=== PATIENT | male | born 1960 | race Caucasian/White ===

== ENCOUNTER 2019-12-21 05:48 | Emergency (ER) | payer OTHER, MEDICAID ==
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
[2019-12-21] MEDS ORDERED: IBUPROFEN 800 MG TABLET PO ONE (08:04)
[2019-12-21] MEDS ORDERED: LIDOCAINE 5% (700 MG) TRANSDERMAL ADH..PATCH TP ONE (08:36)
[2019-12-21 08:52] VITALS: BP 136/54
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
== END 2019-12-21 08:52 | disposition home or self-care (01) ==
LOC: ER 05:48
DX: S42.034A Nondisplaced fracture of lateral end of right clavicle, initial encounter for closed fracture (principal); S43.006A Unspecified dislocation of unspecified shoulder joint, initial encounter; Y93.89 Activity, other specified; M25.511 Pain in right shoulder; M25.562 Pain in left knee; M79.642 Pain in left hand; V29.40XA Motorcycle driver injured in collision with unspecified motor vehicles in traffic accident, initial encounter; F17.210 Nicotine dependence, cigarettes, uncomplicated; Z88.0 Allergy status to penicillin
CPT/HCPCS: 99283